=== PATIENT | female | born 2005 | race Two or more races ===

== ENCOUNTER 2024-07-19 16:40 | Emergency (ER) | payer OTHER ==
[~2024-07-19] VITALS: Ht 165.1 cm; Wt 49.4 kg
[2024-07-19 17:36] LABS: HEMOGLOBIN 12.4 g/dL (12.0-15.00); MEAN CELL VOLUME 90.6 fL (80.00-100.00); MEAN CORPUSCULAR HEMOGLOBIN 30.4 pg (27.00-32.0); MEAN CORPUSCULAR HGB CONC 33.6 g/dl (32.0-36.0); PLATELET COUNT 263 K/uL (150-450); RED BLOOD COUNT 4.09 M/uL (4.00-6.00); RED CELL DISTRIBUTION WIDTH 13.2 % (11.5-14.5)
[2024-07-19 18:15] LABS: URINE APPEARANCE Clear; URINE BILIRRUBIN Negative (NEGATIVE); URINE BLOOD Negative; URINE COLOR Yellow; URINE GLUCOSE Negative (NEGATIVE); URINE KETONE 15 (NEGATIVE); URINE LEUKOCYTE Trace; URINE NITRATE Negative; URINE PROTEIN Negative (NEGATIVE); URINE UROBILINOGEN 0.2 E.U./dl
[2024-07-19 18:21] LABS: URINE BACTERIA 3532.3 uL (0.0-1933); URINE EPITHELIAL CELLS 121.5 uL (0.0-38.8); URINE RBC 22.5 uL (0.0-20.8); URINE WBC 42.5 uL (0.0-23.2)
[2024-07-19] MEDS ORDERED: PEPCID AC20 MG PO (19:32)
[2024-07-19] MEDS ORDERED: AMOX1TAB5 PO (19:32)
== END 2024-07-19 19:35 | disposition home or self-care (01) ==
LOC: ER 16:43
PROVIDERS: General Practice
DX: O99.891 Other specified diseases and conditions complicating pregnancy (principal); Z3A.01 Less than 8 weeks gestation of pregnancy; R10.2 Pelvic and perineal pain